=== PATIENT | male | born 1975 | race Caucasian/White ===

== ENCOUNTER 2017-01-12 12:46 | Day surgery (SDC) | payer OTHER ==
[~2017-01-12] VITALS: Ht 185.4 cm; Wt 129.0 kg
--- NOTE | 2017-01-22 07:54 | OR ---
ADMIT: 01/12/2017 RM/LOC: [facility] MR#: [id number] [id number] [place] [address] Operative/Delivery Room Report SEX: M AGE: 41 : 1975 SURGERY DATE: 01/12/2017 SURGEON: Chase Hernandez MD PREPRESS OPERATOR: JB Beltran. PREOPERATIVE DIAGNOSIS: Left long finger amputation. POSTOPERATIVE DIAGNOSIS: Left long finger amputation. PROCEDURE: Left long finger revision amputation. ANESTHESIA: Local. COMPLICATIONS: None. IMPLANTS: None. BLOOD LOSS: About 10. 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 He went to the ED, had it washed out and kind of put a wet-to-dry dressing on it. [place] is from about [place] away so I had him just wait until I was able to get over to the ER to take care of him kind of here in the short- stay area. DESCRIPTION OF PROCEDURE: He was identified and the site was marked. We did a short time-out and prepped and draped his left arm in the usual sterile fashion. After that was done, I kind of examined the wound. He had kind of circumferential loss of soft tissue kind of at the more or less at the eponychial fold and then kind of a longer flap that started from the radial side that went up the eponychial fold. The ulnar side was gone. The nail bed was almost entirely gone. So we irrigated this out with normal saline and then excised the nail bed and the germinal matrix sharply with a knife. Once that looked like it was entirely gone, I identified the nerves and kind of cut them back as far as I could and then kind freshened up the skin edges to a plan for sort of a flap coverage where we kind of ended up with sort of a trident sort of a coverage. I brought that radial flap over to meet the dorsal eponychial fold and then that came together with the ulnar side. So I kind of used the Mccall to push back the soft tissue off the bone and got that exposed and then cut that sharply, and used a rongeur to contour it to get ADMIT: 01/12/2017 RM/LOC: [facility] MR#: [id number] [id number] [id number] [place] [address] [place] [address] Operative/Delivery Room Report SEX: M AGE: 41 : 1975 nice rounded edges kind of back as far as I could. I was able to preserve the DIP joint, but I was getting right up to the flexor tendon insertion. Once I had it irrigated out real well with normal saline, I kind of planed my flaps and closed that with 4-0 nylon suture. Put bacitracin ointment and Xeroform over the top of it and then put a sterile dressing on it. Postoperatively, I gave him a script for Augmentin and tramadol, have him keep that dressing on for five days. After five days, he can take that off and just change it with dry dressings daily and then I will see him back in 1 to 2 weeks and do a wound check and plan to get the sutures out in about two weeks ago. Now he does live about three and a half hours away, but he drives down here for work frequently so he may plan to follow up with me or he may follow up closer to home. But, I will plan to see him again in about 1-2 weeks. Chase Hernandez MD/ lynnette JOB #: [id number] CC: Chase Hernandez, Attending Physician Chase Hernandez, Family Physician
--- NOTE | 2017-01-30 15:51 | ER ---
ADMIT: 01/12/2017 RM/LOC: [facility] MR#: [id number] [place], [place] [id number] [address] [facility] [place] [address] Emergency Room Report SEX: M AGE: 41 : 1975 DATE: 01/12/2017 ADDENDUM: CHIEF COMPLAINT: Laceration. HISTORY OF PRESENT ILLNESS: This is a 41-year-old male who got his left 3rd finger caught in the cattle gate, it amputated the distal part of his finger. When he arrives, he describes his finger as being obviously very painful, rates his pain 10/10. PAST MEDICAL HISTORY: Appendectomy. MEDICATIONS: None. ALLERGIES: NO KNOWN ALLERGIES. SOCIAL HISTORY: Denies any tobacco, drug, or alcohol use. Lives in [place]. FAMILY HISTORY: Noncontributory. REVIEW OF SYSTEMS: Please see T-sheet. PHYSICAL EXAM: Please see T-sheet. COURSE IN THE EMERGENCY ROOM: X-ray was done of his left 3rd finger, does show a fracture of the distal phalanx. Down here in the ER, I gave him Ancef 2 g IV along with his tetanus shot. I did speak with Dr. Hernandez, he will be repairing the finger here shortly. CLINICAL IMPRESSION: Open fracture of the left 3rd finger of the distal phalanx with avulsion of the tip of the finger. JB Trivedi / Andi De Souza MD / ganesh JOB #: [id number] CC: Chase Hernandez MD, Attending Physician Chase Hernandez MD, Family Physician
== END 2017-01-12 19:33 | disposition home or self-care (01) ==
LOC: ER 12:46 → SSS 13:30
PROC: 0X6R0Z3 Detachment at Left Middle Finger, Low, Open Approach (ICD-10-PCS; principal; 2017-01-12)
DX: S68.623A Partial traumatic transphalangeal amputation of left middle finger, initial encounter (principal); Z90.49 Acquired absence of other specified parts of digestive tract; W23.0XXA Caught, crushed, jammed, or pinched between moving objects, initial encounter